=== PATIENT | male | born 1985 | race Caucasian/White ===

== ENCOUNTER 2017-01-23 17:33 | Emergency (ER) | payer SELFPAY ==
[~2017-01-23] VITALS: Ht 177.8 cm; Wt 125.1 kg
[~2017-01-23 17:33] MED LIST: IBUP-1050 PO; OXYC-57 PO
[2017-01-23 17:38] VITALS: TEMP 36.4; Ht 177.8 cm; Wt 125.1 kg
[2017-01-23 17:45] VITALS: O2SAT 100
[2017-01-23] MEDS ORDERED: METHYLPREDNISOLONE 125 MG VIAL ONE (17:45)
[2017-01-23] MEDS ORDERED: DiphenhydrAMINE HCL 50 MG/ML VIAL ONE (17:45)
[2017-01-23] MEDS ORDERED: SODIUM CHLORIDE 0.9% 1000ML 1,000 ML IV STA (17:50)
[2017-01-23 18:02] LABS: BASO % 0.5 %; BASO ABS # 0.04 K/uL (0-0.2); COMPLETE YES; HEMATOCRIT 47.6 % (42-52); IG% 0.4 %; LYMPH % 31.7 %; LYMPH ABS # 2.36 K/uL (1.2-3.4); MEAN CELL VOLUME 86.7 fL (80-100); MEAN CORPUSCULAR HEMOGLOBIN 29.3 pg (25-34); MEAN CORPUSCULAR HGB CONC 33.8 g/dl (32-36); MEAN PLATELET VOLUME 10.9 fL (7.4-10.4); MONO % 5.4 %; PLATELET COUNT 292 K/uL (130-400); RED BLOOD COUNT 5.49 M/uL (4.7-6.1); WHITE BLOOD COUNT 7.45 K/uL (4.8-10.8)
[2017-01-23] MEDS ORDERED: PENI250T3 PO (18:08)
[2017-01-23 18:19] LABS: CALCIUM 9.2 mg/dl (8.5-10.1); CREATININE 1.4 mg/dl (0.60-1.40); POTASSIUM 3.6 mmol/L (3.5-5.1)
--- NOTE | 2017-01-23 18:28 | DIAGNOSTIC IMAGING REPORT ---
CHEST ONE VIEW PORTABLE HISTORY: Cough. Short of breath. COMPARISON: None. FINDINGS: The lungs are clear. Cardiac silhouette is normal in size. No pleural effusions. No pneumothorax. IMPRESSION: No acute process. Electronically signed by: Primitivo Montanez M.D. 01/23/2017 6:27 PM Dictated Date/Time: 01/23/2017 6:26 PM
[2017-01-23] MEDS ORDERED: PRED50TA PO (19:51)
[2017-01-23 20:04] VITALS: BP 139/83; PULSE 63; O2SAT 95
--- NOTE | 2017-01-23 20:53 | EMERGENCY ROOM VISIT NOTE ---
History Report prepared by Miguelibjemima: Leo Ricks Under the Supervision of: Dr. Brad Fernandez D.O. First contact with patient: 17:42 Chief Complaint: ALLERGIC REACTION Stated Complaint: ALLERGIC REACTION History of Present Illness The patient is a 31 year old male who presents to the Emergency Room with complaints of an acute allergic reaction that started around 1700 ( approximately one hour [employer]). The patient started experiencing swelling of his face after eating a sandwich. The patient also notes trouble breathing and swallowing. His symptoms have not worsened significantly since onset. He noticed a hive-like rash en route to the ED. The patient feels like the upper portion of his throat is swollen. The patient has no known allergies other than hornet stings. He was not stung by a hornet at any point recently. The patient has been taking Aspirin, Ibuprofen, and Penicillin for the past several days for a dental infection. She has never had this before. He has never had any trouble with penicillins. Source of History: patient Onset: approximately 1700 today Position: other (global) Quality: other (allergic reaction) Timing: other (acute) Associated Symptoms: + SOB (trouble breathing), + rash Review of Systems See HPI for pertinent positives & negatives. A total of 10 systems reviewed and were otherwise negative. Past Medical & Surgical Medical Problems: (1) Cholecystitis, acute (2) Cholelithiasis Family History No pertinent family history Social History Smoking Status: Never Smoker Alcohol Use: none Drug Use: none Marital Status: single Housing Status: lives with roommate Occupation Status: [employer] student Current/Historical Medications Scheduled Penicillin V Potassium (Veetids), 1 TAB PO TID Prednisone (Prednisone), 50 MG PO DAILY Allergies Uncoded Allergies: HORNETS (Allergy, Unknown, UNKNOWN, 01/23/17) Physical Exam Vital Signs Date Time Temp Pulse Resp B/P (MAP) Pulse Ox O2 Delivery O2 Flow Rate FiO2 01/23/17 20:04 63 16 139/83 95 01/23/17 18:45 50 18 127/76 97 Room Air 01/23/17 18:31 56 18 130/76 96 Room Air 01/23/17 18:16 54 20 127/85 99 Room Air 01/23/17 18:11 58 18 130/85 98 Room Air 01/23/17 18:05 58 24 129/83 95 Room Air 01/23/17 18:04 97 Room Air 01/23/17 18:00 66 18 129/86 96 Room Air 01/23/17 17:55 51 20 132/83 96 Room Air 01/23/17 17:50 74 01/23/17 17:45 100 Room Air 01/23/17 17:44 68 22 134/74 96 Room Air 01/23/17 17:38 36.4 90 16 145/90 96 Room Air Physical Exam GENERAL: Sitting up in bed, disheveled, nontoxic. EYE EXAM: normal conjunctiva, PERRL and EOM's grossly intact OROPHARYNX: lips, buccal mucosa, and tongue normal and mucous membranes are moist. Moderate swelling of the lower lip and uvula. NECK: supple, no nuchal rigidity, no adenopathy, non-tender. No stridor. LUNGS: Clear to auscultation. Normal chest wall mechanics HEART: no murmurs, S1 normal and S2 normal ABDOMEN: abdomen soft, non-tender, normo-active bowel sounds, no masses, no rebound or guarding. BACK: Back is symmetrical on inspection and there is no deformity, no midline tenderness, no CVA tenderness. SKIN: Face and chest are erythematous with hives on upper extremities. UPPER EXTREMITIES: upper extremities are grossly normal. LOWER EXTREMITIES: No pitting edema. NEURO EXAM: Normal sensorium, cranial nerves II-XII grossly intact, normal speech, no gross weakness of arms, no gross weakness of legs. Gross sensation intact. Medical Decision & Procedures ER Provider Diagnostic Interpretation: Radiology results as stated below per my review and the radiologist's interpretation: CHEST ONE VIEW PORTABLE HISTORY: Cough. Short of breath. COMPARISON: None. FINDINGS: The lungs are clear. Cardiac silhouette is normal in size. No pleural effusions. No pneumothorax. IMPRESSION: No acute process. Electronically signed by: Primitivo Montanez M.D. 01/23/2017 6:27 PM Dictated Date/Time: 01/23/2017 6:26 PM Laboratory Results 01/23/17 17:50 Red Blood Count 5.49, Mean Corpuscular Volume 86.7, Mean Corpuscular Hemoglobin 29.3, Mean Corpuscular Hemoglobin Concent 33.8, Mean Platelet Volume 10.9, Neutrophils (%) (Auto) 60.0, Lymphocytes (%) (Auto) 31.7, Monocytes (%) (Auto) 5.4, Eosinophils (%) (Auto) 2.0, Basophils (%) (Auto) 0.5, Neutrophils # (Auto) 4.47, Lymphocytes # (Auto) 2.36, Monocytes # (Auto) 0.40, Eosinophils # (Auto) 0.15, Basophils # (Auto) 0.04 01/23/17 17:50 Test 01/23/17 17:50 White Blood Count 7.45 K/uL (4.8-10.8) Red Blood Count 5.49 M/uL (4.7-6.1) Hemoglobin 16.1 g/dL (14.0-18.0) Hematocrit 47.6 % (42-52) Mean Corpuscular Volume 86.7 fL (80-100) Mean Corpuscular Hemoglobin 29.3 pg (25-34) Mean Corpuscular Hemoglobin Concent 33.8 g/dl (32-36) Platelet Count 292 K/uL (130-400) Mean Platelet Volume 10.9 fL (7.4-10.4) Neutrophils (%) (Auto) 60.0 % Lymphocytes (%) (Auto) 31.7 % Monocytes (%) (Auto) 5.4 % Eosinophils (%) (Auto) 2.0 % Basophils (%) (Auto) 0.5 % Neutrophils # (Auto) 4.47 K/uL (1.4-6.5) Lymphocytes # (Auto) 2.36 K/uL (1.2-3.4) Monocytes # (Auto) 0.40 K/uL (0.11-0.59) Eosinophils # (Auto) 0.15 K/uL (0-0.5) Basophils # (Auto) 0.04 K/uL (0-0.2) RDW Standard Deviation 44.4 fL (36.4-46.3) RDW Coefficient of Variation 13.9 % (11.5-14.5) Immature Granulocyte % (Auto) 0.4 % Immature Granulocyte # (Auto) 0.03 K/uL (0.00-0.02) Anion Gap 8.0 mmol/L (3-11) Est Creatinine Clear Calc Drug Dose 101.5 ml/min Estimated GFR () 77.0 Estimated GFR (Non- 66.5 BUN/Creatinine Ratio 13.0 (10-20) Calcium Level 9.2 mg/dl (8.5-10.1) Laboratory results per my review. Medications Administered Medications (Trade) Dose Ordered Sig/Jenae Route Start Time Stop Time Status Last Admin Dose Admin Methylprednisolone Sodium Succinate (Solu-Medrol IV) 125 mg STK-MED ONCE .ROUTE 01/23/17 17:45 01/23/17 17:46 DC 01/23/17 17:45 125 MG Diphenhydramine HCl (Benadryl Inj) 50 mg STK-MED ONCE .ROUTE 01/23/17 17:45 01/23/17 17:46 DC 01/23/17 17:45 50 MG Sodium Chloride 1,000 ml @ 999 mls/hr Q1H1M STAT IV 01/23/17 17:50 01/23/17 18:50 DC 01/23/17 17:50 999 MLS/HR ECG Indication: other (allergic) Rate (beats per minute): 63 Rhythm: normal sinus Findings: no ectopy, other (normal axis) ED Course ED COURSE: Vital signs were reviewed and showed hypertension and bradycardia. The patients medical record was reviewed The above diagnostic studies were performed and reviewed. ED treatments and interventions as stated above. 1744: The patient was evaluated in room B1. A complete history and physical examination was performed. 1744: The patient was started on Benadryl 50 mg IV and Solu-Medrol 125 mg IV. 0: NSS 1000 ml @ 999 mls/hr was ordered. 1809: Reassessed the patient. The redness has disappeared, his shortness of breath is improving, and he is feeling much better. 1914: The patient's swelling has mostly improved. 1954: Upon reevaluation, the patient is doing well..I discussed my findings with the patient and he understands and agrees with the treatment plan. Based on the patients age, coexisting illnesses, exam and lab findings the decision to treat as an outpatient was made. The patient remained stable while under my care. The patient appeared well at the time of discharge. Medical Decision Differential diagnosis: Etiologies such as allergic reaction, anaphylaxis, urticaria, Bolanos-Baljit syndrome, toxic epidermal necrolysis, erythema multiforme, cellulitis, as well as others were entertained. Medication Reconciliation: I attest that I have personally reviewed the patient' s current medication list. Blood Pressure Screening: The patient was found to have a slightly elevated blood pressure due to circumstances. I do not believe that the patient requires hypertension monitoring. Patient is a 31-year-old male who presents the ER with swelling of his lips, face and diffuse erythema with hives on his upper extremities and chest. He notes this all started around 5 PM after eating a chicken sandwich. He is on penicillin but notes he has been on this before without trouble. No other changes in eating or drinking. Patient is otherwise well-appearing talking in full sentences tolerating his secretions. Uvula was slightly enlarged. He does note his symptoms have not changed over the past hour. IV was established and since his symptoms have not changed over the past hour he was given Benadryl , steroids and fluids. He had significant improvement of his symptoms very rapidly. Swelling of the lips, throat, face all nearly resolved. He was observed for 2 hours and discharged follow-up with his PCP. He was discharged on steroids and instructed to take Benadryl 50 mg every 8 hours as needed for swelling.Discussed with Pt concerning signs and symptoms to watch out for. Pt was instructed to follow up with their PCP and discussed with the patient their option to return to the ED at anytime for persistent or worsening symptoms. The appropriate anticipatory guidance and out-patient management, including indications for return to the emergency department, were explained at length to the patient and understood. Impression Primary Impression: Allergic reaction Scribe Attestation The scribe's documentation has been prepared under my direction and personally reviewed by me in its entirety. I confirm that the note above accurately reflects all work, treatment, procedures, and medical decision making performed by me. Departure Information Dispostion Home / Self-Care Prescriptions Prednisone (PREDNISONE) 50 Mg Tab 50 MG PO DAILY for 4 Days, TAB Prov: Brad Fernandez, DO 01/23/17 Referrals No Doctor, Assigned (PCP) Forms HOME CARE DOCUMENTATION FORM, IMPORTANT VISIT INFORMATION Patient Instructions ED Allergic React Food, My Celsion Additional Instructions Please follow up with your primary care doctor with in the next 24 hours. Any worsening of your symptoms, please return to the ED immediately. This includes trouble breathing, trouble swallowing, swelling of your mouth, swelling of her lips, or any other concerning signs or symptoms from your standpoint. Please take Benadryl 50 mg every 8 hours as needed for itching and swelling. Please take steroids as prescribed. Problem Qualifiers Primary Impression: Allergic reaction Encounter type: initial encounter Qualified Codes: T78.40XA - Allergy, unspecified, initial encounter
== END 2017-01-23 20:05 | disposition home or self-care (01) ==
LOC: C.EDB 17:34
DX: T78.40XA Allergy, unspecified, initial encounter (principal); X58.XXXA Exposure to other specified factors, initial encounter; Z91.030 Bee allergy status